=== PATIENT | male | born 1985 | race Caucasian/White ===

== ENCOUNTER 2019-12-14 14:44 | Emergency (ER) | payer OTHER ==
[2019-12-14] MEDS ORDERED: Aspirin 81 MG Tab.Chew PO ONE (14:57)
[2019-12-14] MEDS ORDERED: Sodium Chloride 0.9% 1,000 ML IV ONE (14:57)
--- NOTE | 2019-12-14 15:18 | EDM.PDOC ---
ED HPI GENERAL MEDICAL PROBLEM - General Chief Complaint: Chest Pain Stated Complaint: CHEST PAIN Time Seen by Provider: 12/14/19 14:53 Source of Information: Reports: Patient History Limitations: Reports: No Limitations - History of Present Illness INITIAL COMMENTS - FREE TEXT/NARRATIVE: HISTORY AND PHYSICAL: History of present illness: Patient is a 34-year-old male who presents to the emergency room with complaints of chest pain, bilateral arm pain and feeling lightheaded. 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 This pain radiated down his right arm, across into the left anterior chest and down into his left arm. He describes this pain as sharp stabbing pain which has improved since arrival. He says he feels lightheaded and continues to have some pain to the right anterior chest and right arm. He has a past medical history of hypertension and does take medication for this on a daily basis. Otherwise has not had any cardiac history. States his father in his mid 50's of a cardiac event. Patient denies any fever, chills, headache, change in vision, syncope or near syncope. Denies any back pain, shortness of breath or cough. Denies any abdominal pain, nausea, vomiting, diarrhea, constipation or dysuria. Has not noted any blood in urine or stool. Patient has been eating and drinking appropriately. Review of systems: As per history of present illness and below otherwise all systems reviewed and negative. Past medical history: As per history of present illness and as reviewed below otherwise noncontributory. Surgical history: As per history of present illness and as reviewed below otherwise noncontributory. Social history: See social history for further information Family history: As per history of present illness and as reviewed below otherwise noncontributory. Physical exam: General: Well-developed and well-nourished 34-year-old male. Alert and oriented. Nontoxic-appearing and in no acute distress. HEENT: Atraumatic, normocephalic, pupils equal and reactive bilaterally, negative for conjunctival pallor or scleral icterus, mucous membranes moist, TMs normal bilaterally, throat clear, neck supple, nontender, trachea midline. No drooling or trismus noted. No meningeal signs. No hot potato voice noted. Lungs: Clear to auscultation, breath sounds equal bilaterally, chest nontender. Heart: S1S2, tachycardic with regular rhythm without overt murmur Abdomen: Soft, nondistended, nontender. Negative for masses or hepatosplenomegaly. Negative for costovertebral tenderness. Pelvis: Stable nontender. Skin: Intact, warm, dry. No lesions or rashes noted. Extremities: Atraumatic, moves all extremities per self without difficulty or deficits, negative for cords or calf pain. Neurovascular unremarkable. Neuro: Awake, alert, oriented. Cranial nerves II through XII unremarkable. Cerebellum unremarkable. Motor and sensory unremarkable throughout. Exam nonfocal. Notes: Lab work is unremarkable. Chest x-ray shows no acute findings. I did do an EKG initially 1449 then was repeated at 1533 due to flipped T waves. No previous EKG for comparison. Repeat troponin was negative. Patient is pain-free at this time. We discussed the need for close follow-up with his primary care and I would like him to follow-up with a regional sales trainer. We discussed signs and symptoms that would prompt him to return to the emergency room. Supportive care measures were reviewed and discussed. Voices understanding and is agreeable to plan of care. Denies any further questions or concerns at this time. Diagnostics: CBC, CMP, Troponin, EKG, D.Dimer, Chest CT, Repeat EKG Therapeutics: Aspirin, NS, morphine Prescription: None Impression: Chest pain Plan: 1. Your cardiac work-up today was within normal limits. I do want you to see a regional sales trainer as we discussed for follow-up and further care and management. Please start an 81 mg aspirin once daily until you see your primary care/ regional sales trainer. 2. You may alternate Tylenol and ibuprofen as needed for pain management. Please get plenty of rest. Increase your fluids. Avoid any caffeinated beverages and/or stimulants. 3. Follow-up as we discussed with cardiology and your primary care provider. 4. If at any time your symptoms should return, worsen or new symptoms develop please return to the emergency room. Definitive disposition and diagnosis as appropriate pending reevaluation and review of above. Onset: Today chest Pain Score (Numeric/FACES): 4 - Related Data Allergies Allergy/AdvReac Type Severity Reaction Status Date / Time No Known Allergies Allergy Verified 12/14/19 14:56 Home Meds: Home Meds Escitalopram Oxalate [Lexapro] 20 mg PO DAILY 12/14/19 [History] Fenofibrate 160 mg PO DAILY 12/14/19 [History] Simvastatin 20 mg PO BEDTIME 12/14/19 [History] amLODIPine [Norvasc] 5 mg PO DAILY 12/14/19 [History] lisinopriL [Lisinopril] 20 mg PO DAILY 12/14/19 [History] Past Medical History HEENT History: Reports: None Cardiovascular History: Reports: High Cholesterol, Hypertension Respiratory History: Reports: None Gastrointestinal History: Reports: None Genitourinary History: Reports: None Musculoskeletal History: Reports: None Neurological History: Reports: None Psychiatric History: Reports: None Endocrine/Metabolic History: Reports: None Hematologic History: Reports: None Immunologic History: Reports: None Oncologic (Cancer) History: Reports: None Dermatologic History: Reports: None - Infectious Disease History Infectious Disease History: Reports: Chicken Pox - Past Surgical History Head Surgeries/Procedures: Reports: None HEENT Surgical History: Reports: None Cardiovascular Surgical History: Reports: None Respiratory Surgical History: Reports: None GI Surgical History: Reports: None Male Surgical History: Reports: None Endocrine Surgical History: Reports: None Neurological Surgical History: Reports: None Musculoskeletal Surgical History: Reports: Other (See Below) Oncologic Surgical History: Reports: None Dermatological Surgical History: Reports: None Social & Family History - Family History Family Medical History: Noncontributory - Tobacco Use Smoking Status *Q: Current Every Day Smoker Years of Tobacco use: 15 Packs/Tins Daily: 0.5 - Caffeine Use Caffeine Use: Reports: Coffee, Soda - Recreational Drug Use Recreational Drug Use: No ED ROS GENERAL - Review of Systems Review Of Systems: Comprehensive ROS is negative, except as noted in HPI. ED EXAM, GENERAL - Physical Exam Exam: See Below (See dictation) Course - Vital Signs Last Recorded V/S: Last Vital Signs Temp 97.8 F 12/14/19 14:52 Pulse 97 12/14/19 17:00 Resp 16 12/14/19 17:00 BP 135/77 12/14/19 17:00 Pulse Ox 96 12/14/19 17:00 - Orders/Labs/Meds Orders: Active Orders 24 hr Category Date Time Status EKG Documentation Completion [RC] STAT Care 12/14/19 14:57 Active EKG Documentation Completion [RC] STAT Care 12/14/19 15:07 Active Labs: Laboratory Tests 12/14/19 12/14/19 12/14/19 Range/Units 14:59 14:59 14:59 WBC 10.03 (4.0-11.0) K/uL RBC 4.89 (4.50-5.90) M/uL Hgb 15.0 (13.0-17.0) g/dL Hct 44.0 (38.0-50.0) % MCV 90.0 (80.0-98.0) fL MCH 30.7 (27.0-32.0) pg MCHC 34.1 (31.0-37.0) g/dL RDW Std Deviation 43.0 (28.0-62.0) fl RDW Coeff of Hortensia 13 (11.0-15.0) % Plt Count 223 (150-400) K/uL MPV 9.60 (7.40-12.00) fL Neut % (Auto) 70.0 (48.0-80.0) % Lymph % (Auto) 22.8 (16.0-40.0) % Tyler % (Auto) 6.1 (0.0-15.0) % Eos % (Auto) 0.9 (0.0-7.0) % Baso % (Auto) 0.2 (0.0-1.5) % Neut # (Auto) 7.0 H (1.4-5.7) K/uL Lymph # (Auto) 2.3 (0.6-2.4) K/uL Tyler # (Auto) 0.6 (0.0-0.8) K/uL Eos # (Auto) 0.1 (0.0-0.7) K/uL Baso # (Auto) 0.0 (0.0-0.1) K/uL Nucleated RBC % 0.0 /100WBC Nucleated RBCs # 0 K/uL D-Dimer, Quantitative 0.47 (0.0-0.50) mg/L FEU Sodium 138 (136-148) mmol/L Potassium 3.9 (3.5-5.1) mmol/L Chloride 101 (98-107) mmol/L Carbon Dioxide 25.5 (21.0-32.0) mmol/L BUN 18 (7.0-18.0) mg/dL Creatinine 1.3 (0.8-1.3) mg/dL Est Cr Clr Drug Dosing 86.22 mL/min Estimated GFR (MDRD) > 60.0 ml/min Glucose 132 H (74-106) mg/dL Calcium 9.4 (8.5-10.1) mg/dL Total Bilirubin 0.5 (0.2-1.0) mg/dL AST 19 (15-37) IU/L ALT 23 (14-63) IU/L Alkaline Phosphatase 77 (46-116) U/L Troponin I < 0.050 (0.000-0.056) ng/mL Total Protein 7.1 (6.4-8.2) g/dL Albumin 4.0 (3.4-5.0) g/dL Globulin 3.1 (2.6-4.0) g/dL Albumin/Globulin Ratio 1.3 (0.9-1.6) 12/14/19 Range/Units 17:35 WBC (4.0-11.0) K/uL RBC (4.50-5.90) M/uL Hgb (13.0-17.0) g/dL Hct (38.0-50.0) % MCV (80.0-98.0) fL MCH (27.0-32.0) pg MCHC (31.0-37.0) g/dL RDW Std Deviation (28.0-62.0) fl RDW Coeff of Hortensia (11.0-15.0) % Plt Count (150-400) K/uL MPV (7.40-12.00) fL Neut % (Auto) (48.0-80.0) % Lymph % (Auto) (16.0-40.0) % Tyler % (Auto) (0.0-15.0) % Eos % (Auto) (0.0-7.0) % Baso % (Auto) (0.0-1.5) % Neut # (Auto) (1.4-5.7) K/uL Lymph # (Auto) (0.6-2.4) K/uL Tyler # (Auto) (0.0-0.8) K/uL Eos # (Auto) (0.0-0.7) K/uL Baso # (Auto) (0.0-0.1) K/uL Nucleated RBC % /100WBC Nucleated RBCs # K/uL D-Dimer, Quantitative (0.0-0.50) mg/L FEU Sodium (136-148) mmol/L Potassium (3.5-5.1) mmol/L Chloride (98-107) mmol/L Carbon Dioxide (21.0-32.0) mmol/L BUN (7.0-18.0) mg/dL Creatinine (0.8-1.3) mg/dL Est Cr Clr Drug Dosing mL/min Estimated GFR (MDRD) ml/min Glucose (74-106) mg/dL Calcium (8.5-10.1) mg/dL Total Bilirubin (0.2-1.0) mg/dL AST (15-37) IU/L ALT (14-63) IU/L Alkaline Phosphatase (46-116) U/L Troponin I < 0.050 (0.000-0.056) ng/mL Total Protein (6.4-8.2) g/dL Albumin (3.4-5.0) g/dL Globulin (2.6-4.0) g/dL Albumin/Globulin Ratio (0.9-1.6) Meds: Medications Discontinued Medications Generic Name Dose Route Start Last Admin Trade Name Freq PRN Reason Stop Dose Admin Aspirin 324 mg 12/14/19 14:57 12/14/19 15:13 Aspirin PO 12/14/19 14:58 324 mg ONETIME ONE Administration Sodium Chloride 1,000 mls @ 999 mls/hr 12/14/19 14:57 12/14/19 15:13 Normal Saline IV 12/14/19 15:57 999 mls/hr STAT ONE Administration Iopamidol 60 ml 12/14/19 16:33 12/14/19 16:51 Isovue Multipack-370 (76%) IVPUSH 12/14/19 16:34 60 ml ONETIME STA Administration Iopamidol 60 ml 12/14/19 16:48 Isovue Multipack-370 (76%) IVPUSH 12/14/19 16:49 ONETIME STA Morphine Sulfate 2 mg 12/14/19 15:58 12/14/19 16:26 Morphine IVPUSH 06/01/20 15:59 Not Given ONETIME ONE Departure - Departure Time of Disposition: 18:29 Disposition: Home, Self-Care 01 Clinical Impression: Chest pain Qualifiers: Chest pain type: unspecified Qualified Code(s): R07.9 - Chest pain, unspecified Instructions: Nonspecific Chest Pain, Adult, [id number] Referrals: PCP,None [Primary Care Provider] - Forms: ED Department Discharge Additional Instructions: The following information is given to patients seen in the emergency department who are being discharged to home. This information is to outline your options for follow-up care. We provide all patients seen in our emergency department with a follow-up referral. The need for follow-up, as well as the timing and circumstances, are variable depending upon the specifics of your emergency department visit. If you don't have a primary care physician on staff, we will provide you with a referral. We always advise you to contact your personal physician following an emergency department visit to inform them of the circumstance of the visit and for follow-up with them and/or the need for any referrals to a consulting specialist. The emergency department will also refer you to a specialist when appropriate. This referral assures that you have the opportunity for follow-up care with a specialist. All of these measure are taken in an effort to provide you with optimal care, which includes your follow-up. Under all circumstances we always encourage you to contact your private physician who remains a resource for coordinating your care. When calling for follow-up care, please make the office aware that this follow-up is from your recent emergency room visit. If for any reason you are refused follow-up, please contact the [facility] Emergency Department at and asked to speak to the emergency department charge nurse. [facility] [address] [place] [id number] [id number] 1. Your cardiac work-up today was within normal limits. I do want you to see a regional sales trainer as we discussed for follow-up and further care and management. Please start an 81 mg aspirin once daily until you see your primary care/ regional sales trainer. 2. You may alternate Tylenol and ibuprofen as needed for pain management. Please get plenty of rest. Increase your fluids. Avoid any caffeinated beverages and/or stimulants. 3. Follow-up as we discussed with cardiology and your primary care provider. 4. If at any time your symptoms should return, worsen or new symptoms develop please return to the emergency room. Sepsis Event Note - Evaluation Sepsis Screening Result: No Definite Risk - Focused Exam Vital Signs: Vital Signs Temp Pulse Resp BP Pulse Ox 12/14/19 17:00 97 16 135/77 96 12/14/19 16:18 101 H 16 161/83 H 97 12/14/19 14:52 97.8 F 122 H 18 149/85 H 97 Date Exam was Performed: 12/14/19 Time Exam was Performed: 18:27 - My Orders Last 24 Hours: My Active Orders 12/14/19 14:57 EKG Documentation Completion [RC] STAT 12/14/19 15:07 EKG Documentation Completion [RC] STAT - Assessment/Plan Last 24 Hours: My Active Orders 12/14/19 14:57 EKG Documentation Completion [RC] STAT 12/14/19 15:07 EKG Documentation Completion [RC] STAT
[2019-12-14 15:33] LABS: BLOOD UREA NITROGEN,BUN 18 mg/dL (7.0-18.0); CARBON DIOXIDE,CO2 25.5 mmol/L (21.0-32.0); CHLORIDE,CL 101 mmol/L (98-107); GLUCOSE RANDOM 132 mg/dL (74-106); POTASSIUM,K 3.9 mmol/L (3.5-5.1); SODIUM,NA 138 mmol/L (136-148)
--- NOTE | 2019-12-14 15:46 | CR ---
Chest: Portable view of the chest was obtained. Comparison: No previous chest x-ray. Heart size and mediastinum are normal. Lungs are clear with no acute parenchymal change. Bony structures are grossly intact. Impression: 1. Nothing acute is appreciated on portable chest x-ray. Diagnostic code #1 This report was dictated in MDT
[2019-12-14] MEDS ORDERED: Morphine 2 MG/ML Syringe IVPUSH ONE (15:58)
[2019-12-14] MEDS ORDERED: Iopamidol 755 MG/ML 500 ML Multipack Bottle IVPUSH STA ×2 (16:33→16:48)
--- NOTE | 2019-12-14 17:20 | CT ---
CT chest Technique: Multiple axial sections were obtained from above the lung apices inferiorly through the lung bases. Intravenous contrast was utilized. Study has been performed as a pulmonary angiogram protocol. Findings: Pulmonary arteries are fairly well opacified. No filling defects are seen to indicate pulmonary embolism. Mediastinum and hilar region show no adenopathy. Calcified lymph node is seen within the pretracheal region. Aorta shows no aneurysm or dissection. No pericardial thickening is seen. Visualized upper abdominal structures shows no discrete abnormality. Nodule is identified within the right middle lobe measuring 1.0 cm. This shows calcifications and is compatible with a granuloma. Lungs otherwise are clear with no acute parenchymal change. No pleural effusions are seen. Bone window settings were reviewed. Minimal degenerative change is scattered throughout the spine. No acute osseous finding is seen. Impression: 1. Calcified granuloma within the right middle lobe as well as calcified mediastinal lymph node. 2. No findings of pulmonary embolism. 3. Nothing acute is appreciated on CT study of the chest. Diagnostic code #2 This report was dictated in MDT
== END 2019-12-14 18:20 | disposition home or self-care (01) ==
LOC: MW.ED 14:44
DX: R07.89 Other chest pain (principal); E78.00 Pure hypercholesterolemia, unspecified; I10 Essential (primary) hypertension; F17.210 Nicotine dependence, cigarettes, uncomplicated; Z79.899 Other long term (current) drug therapy
CPT/HCPCS: 36415; 71045; 71275; 80053; 84484; 85025; 85379; 93005; 96360; 99285; A9270; J7030; Q9967; 99283